=== PATIENT | female | born 1985 | race Caucasian/White ===

== ENCOUNTER 2018-10-13 16:32 | Emergency (ER) | payer OTHER ==
--- NOTE | 2018-10-13 16:39 | PDOC ---
Rapid Medical Evaluation Chief Complaint: Suture/Staple Removal (other) Time Seen by Provider: 10/13/18 16:38 Medical Evaluation: Allergies Allergy/AdvReac Type Severity Reaction Status Date / Time No Known Allergies Allergy Verified 10/13/18 16:37 10/13/18 16:38 I have performed a brief in-person evaluation of this patient. The patient presents with a chief complaint of:s/p csection 1 week ago at [place], here in ED for staple removal as has no insurance to go to clinic. No pain, discharge, f/c Pertinent physical exam findings:stable, rest fo exam deferred to ED provider I have ordered the following:nothing The patient will proceed to the ED for further evaluation 10/13/18 16:39 Discharge Disposition - Diagnosis Removal of staple - Referrals - Patient Instructions - Post Discharge Activity
[2018-10-13 16:41] VITALS: BP 121/73; PULSE 70; TEMP 98.1; BMI 22.7
--- NOTE | 2018-10-13 18:29 | PDOC ---
Suture Removal/Wound Check HPI - History of Present Illness Chief Complaint: Suture/Staple Removal (other) Stated Complaint: COMPLICATIONS AFTER Time Seen by Provider: 10/13/18 16:38 History Source: Yes: Patient Exam Limitations: Yes: No Limitations - Onset of Previous Treatment Date of Occurence: 10/04/18 (emergency ) Comment:: 10/13/18 18:31 33-year-old woman presents emergency Department 8 days status post emergency C- section at 31 weeks gestation. Patient was noted to have had with 2 chamber heart and multiple pulmonary abnormalities and decision was made to perform the . Child had subsequent demise patient was told to follow-up in the [facility] clinic at [facility] today for wound evaluation and staple removal. Patient states she was told the clinic that they do not accept her insurance and was referred to another facility. Patient presented to 2 ERs and an additional clinic today prior to presentation to our emergency department. At all places she was told care could not be rendered due to lack of staph or insurance issues. Past History - Past Medical History Allergies/Adverse Reactions: Allergies Allergy/AdvReac Type Severity Reaction Status Date / Time No Known Allergies Allergy Verified 10/13/18 16:37 - Suicide/Smoking/Psychosocial Hx Smoking History: Never smoked Have you smoked in the past 12 months: No Information on smoking cessation initiated: No Hx Alcohol Use: No Drug/Substance Use Hx: No Suture Removal/Wound Check PE - Physical Exam Laceration/Wound Check Symptoms: reports: None Current Severity Level: None Maximum Severity Level: None Pain Localization: None Location of Laceration/Wound: bilateral: Abdomen (midline bikini-line) Pain Radiation: None *Review of Systems - Review of Systems Able to Perform ROS?: Yes Constitutional: No: Symptoms Reported HEENTM: No: Symptoms Reported Respiratory: No: Symptoms reported Cardiac (ROS): No: Symptoms Reported ABD/GI: No: Symptoms Reported : No: Symptoms Reported Musculoskeletal: No: Symptoms Reported Integumentary: No: Symptoms Reported Neurological: No: Symptoms reported Endocrine: No: Symptoms Reported Hematologic/Lymphatic: No: Symptoms Reported *Physical Exam - Vital Signs Last Vital Signs Temp Pulse Resp BP Pulse Ox 98.1 F 70 16 121/73 99 10/13/18 16:38 10/13/18 16:38 10/13/18 16:38 10/13/18 16:38 10/13/18 16:38 - Physical Exam General Appearance: Yes: Appropriately Dressed. No: Apparent Distress HEENT: positive: Normal ENT Inspection Neck: positive: Trachea midline Respiratory/Chest: positive: Lungs Clear, Normal Breath Sounds Integumentary: positive: Normal Color, Dry, Warm, Other ( incision with 21 maribel. Wound is well approximated with granulation tissue noted. No erythema or warmth Surrounding wound.) Neurologic: positive: Fully Oriented, Alert Medical Decision Making - Medical Decision Making 10/13/18 18:24 A/P: 33-year-old woman 8 days status post Wound well approximated. No erythema, discharge or drainage noted from the wound. Patient has no local or systemic signs of infection. 21 maribel removed without incident Discharge home with instructions to follow-up with the clinic at [facility] or with the original clinic she was referred for routine postsurgical section evaluation. *DC/Admit/Observation/Transfer Diagnosis at time of Disposition: Removal of staple - Discharge Dispostion Disposition: HOME Condition at time of disposition: Stable Decision to Admit order: No - Referrals - Patient Instructions Additional Instructions: It is very important that you follow-up with an assistant associate professor for evaluation after having a section. [facility] is located at [address] [place] [address] in [place]. Return to emergency department for any new or worsening symptoms. Thank you very much for choosing us to provide your emergent health care needs. Es muy importante que brooke un seguimiento con un obstetra para eulalio evaluacin despus de euallio cesrea. [facility] se encuentra en [address] [place] [address] en [place]. Regrese al departamento de emergencias para cualquier sntoma nuevo o que empeore. Muchas bonnie por elegirnos para satisfacer angelica necesidades de atencin mdica de emergencia. - Post Discharge Activity
== END 2018-10-13 18:30 | disposition home or self-care (01) ==
LOC: JERFT 16:32
DX: Z39.2 Encounter for routine postpartum follow-up (principal); Z48.02 Encounter for removal of sutures
CPT/HCPCS: 99281-25